=== PATIENT | female | born 1960 | race Caucasian/White ===

== ENCOUNTER → 2023-10-15 10:23 | Outpatient (REF) | payer BC, SELFPAY | LOC: WDC 10:23 | PROVIDERS: ATTENDING PHYSICIAN Physician Assistant | DX: Z12.31 Encounter for screening mammogram for malignant neoplasm of breast (principal); Z13.820 Encounter for screening for osteoporosis | CPT/HCPCS: 77063; 77067; 77080 ==

== ENCOUNTER → 2024-07-20 18:02 | Outpatient (REF) | payer BC, SELFPAY | LOC: RAD 18:02 | PROVIDERS: ATTENDING PHYSICIAN Physician Assistant | DX: M25.552 Pain in left hip (principal); M54.50 Low back pain, unspecified | CPT/HCPCS: 72110; 73502 ==

== ENCOUNTER → 2024-10-21 11:17 | Outpatient (REF) | payer BC, SELFPAY | LOC: WDC 11:17 | PROVIDERS: ATTENDING PHYSICIAN Physician Assistant | DX: Z12.31 Encounter for screening mammogram for malignant neoplasm of breast (principal) | CPT/HCPCS: 77063; 77067 ==